=== PATIENT | female | born 1990 | race Caucasian/White ===

== ENCOUNTER 2019-08-24 14:20 | Observation (INO) | payer SELFPAY | END 2019-08-24 17:40 | disposition home or self-care (01) | LOC: MED 14:20 → MLD 14:30 | PROVIDERS: ADMIT Obstetrics & Gynecology; ATTEND Obstetrics & Gynecology | DX: O99.89 Other specified diseases and conditions complicating pregnancy, childbirth and the puerperium (principal); M54.9 Dorsalgia, unspecified; Z3A.19 19 weeks gestation of pregnancy | CPT/HCPCS: 99281; G0378 ==